=== PATIENT | male | born 1975 | race Caucasian/White ===

== ENCOUNTER 2016-11-09 10:09 | Emergency (ER) | payer MEDICARE, OTHER ==
[2016-11-09] MEDS ORDERED: DIPHENHYDRAMINE 50 MG/ML VIAL ONE (11:45)
[2016-11-09] MEDS ORDERED: FAMOTIDINE 20 MG INJ ONE (11:45)
[2016-11-09] MEDS ORDERED: METHYLPRED SOD SUCC 125 MG/2 ML VIAL ONE (11:45)
== END 2016-11-09 14:19 | disposition home or self-care (01) ==
LOC: ER 10:09
DX: L52 Erythema nodosum (principal); Z98.890 Other specified postprocedural states; F17.210 Nicotine dependence, cigarettes, uncomplicated
CPT/HCPCS: 36415; 80053; 85025; 96374; 96375; 99283; J2930